=== PATIENT | male | born 1945 | race Caucasian/White ===

== ENCOUNTER 2022-07-29 15:49 | Inpatient (IN) | payer OTHER ==
[~2022-07-29] VITALS: Ht 163.8 cm; Wt 110.2 kg
--- NOTE | 2022-07-29 16:12 | NUR ---
name called no answer
--- NOTE | 2022-07-29 16:20 | NUR ---
lwbs at this time
[2022-07-29 17:56] VITALS: BP 154/80
--- NOTE | 2022-07-29 19:10 | NUR ---
LAB AT BEDSIDE
--- NOTE | 2022-07-29 19:16 | NUR ---
Pt report given to DIANA DOTSON. Transfer of care at this time.
[2022-07-29 19:41] LABS: BASOPHILS % (AUTO) 0.4 % (0.0-2.0); EOSINOPHILS % (AUTO) 0.2 % (0.0-4.0); HEMATOCRIT 41.6 % (36-52); HEMOGLOBIN 13.7 g/dL (12.0-18.0); LYMPHOCYTES # (AUTO) 1.7 K/uL (2.0-11.5); LYMPHOCYTES % (AUTO) 29.8 % (20.5-51.1); MEAN CORPUSCULAR HEMOGLOBIN 28 pg (27-31); MEAN CORPUSCULAR HGB CONC 33 g/dL (33-37); MEAN CORPUSCULAR VOLUME 84.8 fL (80-94); MONOCYTES # (AUTO) 0.4 K/uL (0.8-1.0); MONOCYTES % (AUTO) 7.4 % (1.7-9.3); NEUTROPHILS # (AUTO) 3.5 K/uL (1.8-7.7); NEUTROPHILS % (AUTO) 62.2 % (42.2-75.2); PLATELET COUNT (AUTO) 250 K/uL (140-450); WHITE BLOOD COUNT (AUTO) 5.6 K/uL (4.8-10.8)
[2022-07-29 20:04] LABS: ALBUMIN 3.6 g/dL (3.4-5.0); ANION GAP 16.9 (8-16); ASPARTATE AMINOTRANSFERASE 25 U/L (15-37); CHLORIDE 101 mmol/L (98-107); CREATININE 1.2 mg/dL (0.6-1.3); GLUCOSE 167 mg/dL (74-106); POTASSIUM 3.9 mmol/L (3.5-5.1); SODIUM SERUM 137 mmol/L (136-145); TOTAL BILIRUBIN 0.5 mg/dL (0.0-1.0); UREA NITROGEN, BLOOD 17 mg/dL (7-18)
[2022-07-29] MEDS ORDERED: ASPIRIN 325 MG TAB PO ONE (20:10)
[2022-07-29] MEDS ORDERED: FUROSEMIDE 40 MG/4 ML VIAL IVP ONE (20:10)
--- NOTE | 2022-07-29 20:22 | NUR ---
PT SISTER ANNIKA CALLED REQUESTING UPDATE
[2022-07-29 22:11] LABS: APPEARANCE,URINE CLEAR (CLEAR); BILIRUBIN,URINE NEGATIVE (NEGATIVE); BLOOD, URINE NEGATIVE (NEGATIVE); COLOR,URINE YELLOW (YELLOW); LEUKOCYTE ESTERASE ,URINE NEGATIVE (NEGATIVE); NITRITE, URINE NEGATIVE (NEGATIVE); UGLUCOSE NEGATIVE (NEGATIVE)
--- NOTE | 2022-07-30 02:40 | NUR ---
Note john in EDM - 07/30/22 at 0305 by [id number] Patient will be admitted to care of Batool DOTSON. Admited to telemetry. Will go to room 124B. Belongings list completed. Bedside report given to Batool DOTSON. Batool DOTSON verbalized understanding of report, no further questions.
--- NOTE | 2022-07-30 02:45 | NUR ---
Patient will be admitted to care of Manoj DOTSON. Admited to telemetry. Will go to room 124B. Belongings list completed. Bedside report given to Manoj DOTSON. Manoj DOTSON verbalized understanding of report, no further questions.
[2022-07-30 03:18] VITALS: BP 131/69
--- NOTE | 2022-07-30 03:45 | NUR ---
Patoient admitted to [facility] floor on 07/31/2022 at 0230 for chest pain and shortness of breath,admitting DD NSTEMI and CHF exacerbations. vital stable. AOX3, romansh speaking , normoactive bowel sounds in 4 quadrants.call light within reach, bed is low position
[2022-07-30 08:00] VITALS: BP 120/61
--- NOTE | 2022-07-30 09:09 | NUR ---
PATIENT HAS BEEN SCREENED AND CATEGORIZED MODERATE NUTRITION RISK. PATIENT WILL BE SEEN WITHIN 3-5 DAYS OF ADMISSION. 08/01/22-08/03/[address] REVIEWED BY KAILASH G[address]IA RD
--- NOTE | 2022-07-30 09:30 | NUR ---
2330: COMPUTER SYSTEM DOWN. RECEIVED REPORT FROM NIGHTSHIFT NURSE. PT A/O X 3. ABLE TO MAKE NEEDS KNOWN. DENIES PAIN AT THIS TIME. EMIRATI SPEAKING. TELE MONITORING. NO SOB OR RESPIRATORY DISTRESS. ON RA. RR EVEN & UNLABORED. L HAND #20 SL. NEEDS ALL MET AT THIS TIME. ALL SAFETY MEASURES IN PLACE.
[2022-07-30] MEDS ORDERED: ZOLPIDEM 5 MG TAB PO PRN (10:15)
[2022-07-30] MEDS ORDERED: ACETAMINOPHEN 325 MG TAB PO PRN (10:15)
[2022-07-30] MEDS ORDERED: HYDROcodone/APAP 7.5/325 MG 1 TAB PO PRN (10:15)
[2022-07-30] MEDS ORDERED: ONDANSETRON 4 MG/2 ML VIAL IM/IVP PRN (10:15)
[2022-07-30] MEDS ORDERED: guaiFENesin DM 200/20 MG-10 ML 10 ML UDC PO PRN (10:15)
[2022-07-30] MEDS: NACL 0.9% 1,000 ML IV SCH (10:15)
[2022-07-30] MEDS ORDERED: POTASSIUM CHLORIDE 10 MEQ TABER PO PRN (10:15)
[2022-07-30] MEDS ORDERED: DOCUSATE SODIUM 100 MG GELCAP PO PRN (10:15)
[2022-07-30] MEDS ORDERED: NITROGLYCERIN 0.4 MG TAB SL PRN (10:20)
[2022-07-30] MEDS ORDERED: DEXTROSE 50% 50 ML SYR IVP PRN (11:00)
[2022-07-30] MEDS: INSULIN LISPRO SLIDING SCALE 100 UNITS/ML VIAL SUBQ PRN ×3 (11:41→21:01)
[2022-07-30] MEDS: BLOOD GLUCOSE MONITORING 1 DEV DEV FS SCH ×3 (11:41→20:59)
[2022-07-30] MEDS: FUROSEMIDE 20 MG/2 ML VIAL IVP SCH ×2 (11:47→20:48)
[2022-07-30 12:00] VITALS: BP 117/65
--- NOTE | 2022-07-30 12:00 | NUR ---
CONTACTED [facility] ([place], [place] ON [address]) LISTED ON MED REC AND PHARMACIST STATES THERE IS NOT PT NAMED, HI VILLALBA WITH THE PROVIDED. WRONG [facility] LISTED. CONTACTED SISTER AND MESSAGE LEFT FOR MEDICATION CLARIFICATION. AWAITING PHONE CALL RETURN.
[2022-07-30 12:25] LABS: PROTHROMBIN TIME 10.7 secs (10.8-13.4)
[2022-07-30 12:53] LABS: CHOL/HDL RATIO 2.2 (1-4.5); FREE T4 (FREE THYROXINE) 1.1 ng/dL (0.76-1.46); MAGNESIUM 1.2 mg/dL (1.8-2.4); PHOSPHORUS 2.5 mg/dL (2.5-4.9); THYROID STIMULATING HORMONE 1.55 uIU/mL (0.34-3.74)
--- NOTE | 2022-07-30 13:10 | NUR ---
DC PLANNING SW MET WITH PATIENT AND NEPHEW AT BEDSIDE TO COMPLETE ASSESSMENT. PT IS FIJIAN SPEAKING, SW INQUIRED IF PATIENT WOULD LIKE CHANNEL OPENER OUTSOLES HOWEVER, PATIENT DECLINED. PT REQUESTED NEPHEW AT BEDSIDE TRANSLATE. PT RESIDES AT HOME WITH HIS FAMILY AT THE ADDRESS LISTED ON FILE. PT IDENTIFIED ANNIKA EDOUARD, SISTER [phone] EMERGENCY CONTACT AND MDM. PATIENT DENIES AD IN PLACE AND ACCEPTED AD OFFERED BY SW. PT REPORTS MEETING WITH PCP, DR TANI OWUSU, IN [facility] CONSISTENTLY. PT REPORTS LAST VISIT, ONE MONTH AGO.PT IS REPORTED TO BE MEDICATION COMPLIANT AND RECEIVES HIS MEDICATION FROM A PHARMACY IN [facility], WHEN NEEDED. SW INQUIRED ON RESOURCES NEEDED FOR IN STATE PCP, NEPHEW REPORTS FAMILY HAS A LIST OF PROVIDERS HOWEVER, PT IS REPORTED TO PREFER MEETING WITH [facility] PCP. PATIENT IS INDEPENDENT IN ALL ACTIVITIES AND DENIES USE OF DME. PATIENT IS REPORTED TO HAVE DIABETES THAT IS WELL MANAGED. PATIENT DENIES HX OF SNF/HH SERVICES. DC PLAN IS FOR PATIENT TO RETURN HOME WITH FAMILY PROVIDING TRANSPORTATION AND AIDING IN CARE, IF REQUIRED.
[2022-07-30 16:00] VITALS: BP 123/54
[2022-07-30] MEDS: ATORVASTATIN 20 MG TAB PO SCH (16:47)
--- NOTE | 2022-07-30 17:53 | NUR ---
P.T. NOTES P.T. EVAL COMPLETED; REFER TO EVAL FOR DETAILS.
--- NOTE | 2022-07-30 19:00 | NUR ---
PT STABLE. IN NO DISTRESS. RESTING COMFORTABLY. STILL AWAITING PHONE CALL FROM PT'S SISTER TO RECEIVE CORRECT MEDICATION LIST. ALL NEEDS MET. ALL SAFETY MEASURES IN PLACE.
--- NOTE | 2022-07-30 19:21 | NUR ---
REPORT GIVEN TO NIGHTSALFT NURSEOSCAR FOR CONTINUITY OF CARE.
--- NOTE | 2022-07-30 19:22 | NUR ---
RECEIVED PT TO MORNING SHIFT NURSE. PT IS AOX3, IVORIAN SPEAKING, AMBULATORY WITH ASSIST, ABLE TO VERBALIZE NEEDS AND ABLE TO FOLLOW COMMANDS. PT IS ON ROOM AIR AND ON CARDIAC DIET. PT HAS IV ON LEFT HAND GAUGE 20 RUNNING WITH NS AT 30. PT SKIN IS INTACT. ALL SAFETY MEASURES IMPLEMENTED. BED WHEELS ON LOCKED, BED IN LOW POSITION AND CALL LIGHT WITHIN REACH.
[2022-07-30 19:26] LABS: BARBITURATE, URINE NEGATIVE ng/ml (NEG <=200); BENZODIAZEPINE, URINE NEGATIVE ng/mL (NEG <=200); CANNABINOID, URINE NEGATIVE ng/mL (NEG <=50); COCAINE, URINE NEGATIVE ng/mL (NEG <=300); OPIATE, URINE NEGATIVE ng/mL (NEG <=2000); PHENCYCLIDINE SCREEN,URINE NEGATIVE ng/mL (NEG <=25)
[2022-07-30 20:00] VITALS: BP 149/66
[2022-07-30] MEDS: METOPROLOL 25 MG TAB PO SCH (21:05)
--- NOTE | 2022-07-30 21:05 | NUR ---
ALL SCHEDULED AND PRESCRIBED MEDICATION WAS GIVEN TO PT PER MD ORDER. PT TOLERATED IT WELL. ALL SAFETY MEASURES IMPLEMENTED. BED WHEELS ON LOCKED, BED IN LOW POSITION AND CALL LIGHT WITHIN REACH.
[2022-07-31] VITALS: BP 146/60
--- NOTE | 2022-07-31 | NUR ---
PT IS SLEEPING. CHEST RISE AND FALL SYMMETRICALLY NOTED. RESPIRATION IS EVEN AND UNLABORED SATING WITH PULSE OF 84 AND SR WITH 1 DEGREE AV BLOCK RHYTHM. ALL SAFETY MEASURES IMPLEMENTED. BED WHEELS ON LOCK, BED IN LOW POSITION AND CALL LIGHT WITHIN REACH.
--- NOTE | 2022-07-31 01:00 | NUR ---
ASSISTED PT TO RESTROOM. ALSO REMINDED THE PATIENT TO BE CARE WITH HIS IV LINE. PT NODDED AND AGREED ON IT. ALL SAFETY MEASURES IMPLEMENTED. BED WHEELS ON LOCK, BED IN LOW POSITION AND CALL LIGHT WITHIN REACH.
[2022-07-31 04:00] VITALS: BP 123/58
--- NOTE | 2022-07-31 04:00 | NUR ---
CHECKED PT, STILL SLEEPING. CHEST RISE AND FALL SYMMETRICALLY NOTED. RESPIRATION IS EVEN AND UNLABORED WITH PULSE OF 72 AND SR WITH 1 DEGREE AV BLOCK RHYTHM. ALL SAFETY MEASURES IMPLEMENTED. BED WHEELS ON LOCK, BED IN LOW POSITION AND CALL LIGHT WITHIN REACH.
[2022-07-31 05:45] LABS: BASOPHILS % (AUTO) 0.4 % (0.0-2.0); EOSINOPHILS # (AUTO) 0.1 K/uL (0-0.4); HEMATOCRIT 36.4 % (36-52); HEMOGLOBIN 12.1 g/dL (12.0-18.0); LYMPHOCYTES # (AUTO) 3.3 K/uL (2.0-11.5); LYMPHOCYTES % (AUTO) 47.9 % (20.5-51.1); MEAN CORPUSCULAR HEMOGLOBIN 28 pg (27-31); MEAN CORPUSCULAR HGB CONC 33 g/dL (33-37); MEAN CORPUSCULAR VOLUME 84.2 fL (80-94); MONOCYTES # (AUTO) 0.8 K/uL (0.8-1.0); MONOCYTES % (AUTO) 11.6 % (1.7-9.3); NEUTROPHILS # (AUTO) 2.7 K/uL (1.8-7.7); NEUTROPHILS % (AUTO) 39.1 % (42.2-75.2); PLATELET COUNT (AUTO) 232 K/uL (140-450); RED BLOOD CELL COUNT(AUTO) 4.32 MIL/uL (4.20-6.10); RED CELL DISTRIBUTION WIDTH 14.9 % (11.6-13.7); WHITE BLOOD COUNT (AUTO) 6.9 K/uL (4.8-10.8)
[2022-07-31 06:23] LABS: ANION GAP 11.9 (8-16); CARBON DIOXIDE 28.9 mmol/L (21-32); CHLORIDE 104 mmol/L (98-107); CREATININE 1.2 mg/dL (0.6-1.3); GLUCOSE 138 mg/dL (74-106); POTASSIUM 3.8 mmol/L (3.5-5.1); SODIUM SERUM 141 mmol/L (136-145); UREA NITROGEN, BLOOD 17 mg/dL (7-18)
[2022-07-31] MEDS: BLOOD GLUCOSE MONITORING 1 DEV DEV FS SCH ×4 (06:33→20:36)
--- NOTE | 2022-07-31 06:34 | NUR ---
PT BLOOD GLUCOSE IS 148, NO INSULIN COVERAGE NEEDED. ALL SAFETY MEASURES IMPLEMENTED. BED WHEELS ON LOCK, BED IN LOW POSITION AND CALL LIGHT WITHIN REACH.
--- NOTE | 2022-07-31 07:13 | NUR ---
PT IS STABLE. ENDORSED PT TO MORNING SHIFT NURSE FOR CONTINUITY OF CARE.
[2022-07-31 08:00] VITALS: BP 134/57
--- NOTE | 2022-07-31 08:00 | NUR ---
RECEIVED REPORT FROM NIGHTSHIFT NURSEOSCAR. PT A/O X3. ESTONIAN SPEAKING ONLY. NO SOB OR RESPIRATORY DISTRESS. ON RA. NS @ 30 ML/HR ON L HAND #20. NEEDS ALL MET AT THIS TIME. ALL SAFETY MEASURES IN PLACE.
[2022-07-31] MEDS: PANTOPRAZOLE 40 MG TABEC PO SCH (09:23)
[2022-07-31] MEDS: lisinopriL 5 MG TAB PO SCH (09:24)
[2022-07-31] MEDS: METOPROLOL 25 MG TAB PO SCH ×2 (09:25→20:20)
[2022-07-31] MEDS: ECOTRIN 81 MG TABEC PO SCH (09:25)
[2022-07-31] MEDS: FUROSEMIDE 20 MG/2 ML VIAL IVP SCH ×2 (09:25→20:19)
[2022-07-31] MEDS: MAGNESIUM OXIDE 400 MG TAB PO SCH (09:33)
--- NOTE | 2022-07-31 10:15 | NUR ---
PT COMPLETED 100% OF BREAKFAST. PT AMBULATED TO AND FROM RESTROOM WITH STEADY GAIT. DENIES PAIN. NO SOB NOTED. ON RA. NEEDS ALL MET AT THIS TIME. ALL SAFETY MEASURES IN PLACE.
[2022-07-31] MEDS: NACL 0.9% 1,000 ML IV SCH (10:16)
[2022-07-31] MEDS: INSULIN LISPRO SLIDING SCALE 100 UNITS/ML VIAL SUBQ PRN ×2 (11:58→20:39)
[2022-07-31 12:00] VITALS: BP 130/61
--- NOTE | 2022-07-31 13:00 | NUR ---
SPOKE WITH PT'S NEPHEW AT BEDSIDE (DANK) AND HE STATES PT DOES NOT HAVE A PHARMACY AND GETS HIS MEDICATION FROM [facility]. PLAN OF CARE DISCUSSED WITH VERBALIZATION OF UNDERSTANDING.
[2022-07-31 16:00] VITALS: BP 127/60
[2022-07-31] MEDS: ATORVASTATIN 20 MG TAB PO SCH (16:27)
--- NOTE | 2022-07-31 17:00 | NUR ---
PT AMBULATING BACK AND FORTH HALLWAY WITH MASK ON. OBSERVED WITH STEADY GAIT. PT AMBULATED BACK TO HIS BED. NO SOB NOTED. NEEDS ALL MET. ALL SAFETY MEASURES IN PLACE.
[2022-07-31 19:03] LABS: T4 (THYROXINE) 0.4 ug/dL (4.5 - 12.0)
--- NOTE | 2022-07-31 19:11 | NUR ---
REPORT GIVEN TO NIGHTSWYFT NURSEOSCAR FOR CONTINUITY OF CARE.
--- NOTE | 2022-07-31 19:12 | NUR ---
RECEIVED PT TO MORNING SHIFT NURSE. PT IS LYING ON THE BED WATCHING TV, AOX3, BHUTANESE SPEAKING, AMBULATORY WITH ASSIST, ABLE TO VERBALIZE NEEDS AND ABLE TO FOLLOW COMMANDS. PT IS ON ROOM AIR AND ON CARDIAC DIET. PT HAS IV ON LEFT HAND GAUGE 20 RUNNING WITH NS AT 30. PT SKIN IS INTACT. ALL SAFETY MEASURES IMPLEMENTED. BED WHEELS ON LOCKED, BED IN LOW POSITION AND CALL LIGHT WITHIN REACH.
[2022-07-31 20:00] VITALS: BP 121/70
--- NOTE | 2022-07-31 22:00 | NUR ---
PT WAS GIVEN WATER PER PT REQUEST. ALL SAFETY MEASURES IMPLEMENTED. BED WHEELS ON LOCKED, BED IN LOW POSITION AND CALL LIGHT WITHIN REACH.
[2022-08-01] VITALS: BP 122/70
--- NOTE | 2022-08-01 | NUR ---
PT IS SLEEPING. CHEST RISE AND FALL SYMMETRICALLY NOTED. RESPIRATION IS EVEN AND UNLABORED. NO S/S OF RESPIRATORY DISTRESS. ALL SAFETY MEASURES IMPLEMENTED. BED WHEELS ON LOCKED, BED IN LOW POSITION AND CALL LIGHT WITHIN REACH.
--- NOTE | 2022-08-01 03:00 | NUR ---
CHECKED THE PT, STILL SLEEPING. CHEST RISE AND FALL SYMMETRICALLY NOTED. RESPIRATION IS EVEN AND UNLABORED. NO S/S OF RESPIRATORY DISTRESS. ALL SAFETY MEASURES IMPLEMENTED. BED WHEELS ON LOCKED, BED IN LOW POSITION AND CALL LIGHT WITHIN REACH.
[2022-08-01 04:00] VITALS: BP 106/60
[2022-08-01 05:59] LABS: BASOPHILS % (AUTO) 0.5 % (0.0-2.0); EOSINOPHILS # (AUTO) 0.1 K/uL (0-0.4); EOSINOPHILS % (AUTO) 1.6 % (0.0-4.0); HEMOGLOBIN 12.1 g/dL (12.0-18.0); LYMPHOCYTES # (AUTO) 2.7 K/uL (2.0-11.5); LYMPHOCYTES % (AUTO) 50.4 % (20.5-51.1); MEAN CORPUSCULAR HEMOGLOBIN 28 pg (27-31); MEAN CORPUSCULAR HGB CONC 34 g/dL (33-37); MEAN CORPUSCULAR VOLUME 83.7 fL (80-94); MONOCYTES # (AUTO) 0.5 K/uL (0.8-1.0); MONOCYTES % (AUTO) 9.2 % (1.7-9.3); NEUTROPHILS # (AUTO) 2.1 K/uL (1.8-7.7); NEUTROPHILS % (AUTO) 38.3 % (42.2-75.2); PLATELET COUNT (AUTO) 236 K/uL (140-450); RED CELL DISTRIBUTION WIDTH 14.4 % (11.6-13.7); WHITE BLOOD COUNT (AUTO) 5.4 K/uL (4.8-10.8)
[2022-08-01 06:25] LABS: ANION GAP 11.9 (8-16); CARBON DIOXIDE 28.4 mmol/L (21-32); CHLORIDE 103 mmol/L (98-107); GLUCOSE 149 mg/dL (74-106); POTASSIUM 3.3 mmol/L (3.5-5.1); SODIUM SERUM 140 mmol/L (136-145); UREA NITROGEN, BLOOD 16 mg/dL (7-18)
--- NOTE | 2022-08-01 06:36 | NUR ---
PT POTASSIUM IS 3.3, K-DUR 40MEQ WAS GIVEN TO PT PER MD ORDER. ALL SAFETY MEASURES IMPLEMENTED. BED WHEELS ON LOCKED, BED IN LOW POSITION AND CALL LIGHT WITHIN REACH.
[2022-08-01] MEDS: BLOOD GLUCOSE MONITORING 1 DEV DEV FS SCH ×4 (06:37→20:52)
--- NOTE | 2022-08-01 06:37 | NUR ---
PT BLOOD GLUCOSE IS 149. NO INSULIN COVERAGE NEEDED.
--- NOTE | 2022-08-01 08:05 | NUR ---
PT IS STABLE. ENDORSE PT TO MORNING SHIFT NURSE FOR CONTINUITY OF CARE.
--- NOTE | 2022-08-01 08:06 | NUR ---
RECEIVED PT FROM GAS PIPE LAYER NURSE. PT IS LYING ON THE BED, YORUBA SPEAKING, AOX4, AMBULATORY, ABLE TO VERBALIZE NEEDS. PT IS ON ROOM AIR. PT HAS IV ON LEFT HAND 20G. PT SKIN IS INTACT. ALL SAFETY MEASURES IMPLEMENTED. BED IN LOW POSITION AND WHEELS LOCKED, CALL LIGHT WITHIN REACH.
[2022-08-01] MEDS: METOPROLOL 25 MG TAB PO SCH ×2 (09:05→20:49)
[2022-08-01] MEDS: ECOTRIN 81 MG TABEC PO SCH (09:06)
[2022-08-01] MEDS: lisinopriL 5 MG TAB PO SCH (09:06)
[2022-08-01] MEDS: PANTOPRAZOLE 40 MG TABEC PO SCH (09:06)
[2022-08-01] MEDS: MAGNESIUM OXIDE 400 MG TAB PO SCH (09:08)
--- NOTE | 2022-08-01 09:15 | NUR ---
ALL SCHEDULED MEDS GIVEN. PT WAS EDUCATED ON MEDICATIONS TAKEN.
[2022-08-01] MEDS: FUROSEMIDE 20 MG/2 ML VIAL IVP SCH ×2 (09:47→20:50)
[2022-08-01 10:00] VITALS: BP 127/46
[2022-08-01] MEDS: NACL 0.9% 1,000 ML IV SCH (10:34)
[2022-08-01 12:00] VITALS: BP 130/61
[2022-08-01] MEDS: INSULIN LISPRO SLIDING SCALE 100 UNITS/ML VIAL SUBQ PRN ×2 (12:15→20:52)
--- NOTE | 2022-08-01 12:20 | NUR ---
PT BLOOD GLUCOSE 239. ADMINISTERED 4 UNITS OF INSULIN PER SLIDING SCALE.
[2022-08-01 16:00] VITALS: BP 129/56
--- NOTE | 2022-08-01 17:26 | NUR ---
PT BLOOD GLUCOSE IS 116, NO INSULIN COVERAGE NEEDED.
[2022-08-01] MEDS ORDERED: CRUSHER, PILL MC ONE (17:49)
[2022-08-01] MEDS: ATORVASTATIN 20 MG TAB PO SCH (17:52)
--- NOTE | 2022-08-01 19:06 | NUR ---
ENDORSED PT TO IMMIGRATION COORDINATOR NURSE FOR CONTINUITY OF CARE. PT IS STABLE.
--- NOTE | 2022-08-01 19:10 | NUR ---
RECEIVED BEDSIDE REPORT FROM DAY SHIFT RN FOR CONTINUITY OF CARE. PT IS AWAKE RESTING IN BED. PT IS AAOX4 JAPANESE SPEAKER. PT IS RA. PT CONTINENT TO BOWEL AND BLADDER. PT HAS LEFT HAND 20 GAUGE RUNNING NS 30 CC/HR. PLAN OF CARE DISCUSSED. WILL CONTINUE TO MONITOR THE PT.
[2022-08-01 20:00] VITALS: BP 116/52
--- NOTE | 2022-08-01 21:06 | NUR ---
SCHEDULE MEDICATIONS GIVEN. NO ADVERSE REACTION NOTED. WILL CONTINUE TO MONITOR THE PT.
--- NOTE | 2022-08-01 23:15 | NUR ---
PT OBSERVED. PT IS SLEEPING COMFORTABLY IN BED. PT NOT IN ANY RESPIRATORY DISTRESS. CALL LIGHT WITHIN REACH. ALL SAFETY MEASURES TAKEN. WILL CONTINUE TO MONITOR THE PT.
[2022-08-02] VITALS: BP 115/47
[2022-08-02 04:00] VITALS: BP 110/51
[2022-08-02 05:45] LABS: BASOPHILS % (AUTO) 0.7 % (0.0-2.0); EOSINOPHILS # (AUTO) 0.1 K/uL (0-0.4); EOSINOPHILS % (AUTO) 1.6 % (0.0-4.0); HEMATOCRIT 36.7 % (36-52); HEMOGLOBIN 12.1 g/dL (12.0-18.0); LYMPHOCYTES # (AUTO) 3.1 K/uL (2.0-11.5); LYMPHOCYTES % (AUTO) 49.3 % (20.5-51.1); MEAN CORPUSCULAR HEMOGLOBIN 28 pg (27-31); MEAN CORPUSCULAR HGB CONC 33 g/dL (33-37); MEAN CORPUSCULAR VOLUME 84.1 fL (80-94); MONOCYTES # (AUTO) 0.6 K/uL (0.8-1.0); MONOCYTES % (AUTO) 9.1 % (1.7-9.3); NEUTROPHILS # (AUTO) 2.5 K/uL (1.8-7.7); NEUTROPHILS % (AUTO) 39.3 % (42.2-75.2); PLATELET COUNT (AUTO) 255 K/uL (140-450); RED BLOOD CELL COUNT(AUTO) 4.36 MIL/uL (4.20-6.10); RED CELL DISTRIBUTION WIDTH 14.5 % (11.6-13.7); WHITE BLOOD COUNT (AUTO) 6.4 K/uL (4.8-10.8)
[2022-08-02 05:58] LABS: CARBON DIOXIDE 28.5 mmol/L (21-32); CHLORIDE 101 mmol/L (98-107); GLUCOSE 160 mg/dL (74-106); POTASSIUM 3.5 mmol/L (3.5-5.1); SODIUM SERUM 136 mmol/L (136-145); UREA NITROGEN, BLOOD 15 mg/dL (7-18)
[2022-08-02] MEDS: INSULIN LISPRO SLIDING SCALE 100 UNITS/ML VIAL SUBQ PRN (06:30)
[2022-08-02] MEDS: BLOOD GLUCOSE MONITORING 1 DEV DEV FS SCH (06:31)
--- NOTE | 2022-08-02 06:35 | NUR ---
PT BLOOD GLUCOSE OF 160 AND WAS COVERED. NO COMPLAINS FROM THE PT. WILL CONTINUE TO MONITOR.
--- NOTE | 2022-08-02 07:24 | NUR ---
ENDORSED PT TO DAY SHIFT RN FOR CONTINUITY OF CARE. PT IS STABLE.
--- NOTE | 2022-08-02 07:25 | NUR ---
RECEIVED PATIENT FROM COMMODITY MERCHANT NURSE FOR CONTINUITY OF CARE. PT IS AOX4, TAMAZIGHT SPEAKING. ON ROOM AIR AND NO DISTRESS NOTED. SKIN IS WARM, DRY, AND INTACT. IVF INFUSING ORDERED. DENIES PAIN AT THE MOMENT. PLAN OF CARE DISCUSSED. SAFETY PRECAUTIONS IN PLACE. CALL LIGHT WITHIN REACH. WILL CONTINUE TO MONITOR.
[2022-08-02] MEDS ORDERED: FURO-570 PO (07:28)
[2022-08-02] MEDS ORDERED: ASPI-1856 PO (07:28)
[2022-08-02] MEDS ORDERED: LISI5TAB24 PO (07:28)
[2022-08-02] MEDS ORDERED: METO25TA PO (07:28)
[2022-08-02] MEDS ORDERED: ATOR20TA40 PO (07:28)
[2022-08-02] MEDS ORDERED: AZIT500T8 PO (07:30)
[2022-08-02 08:00] VITALS: BP 110/36
[2022-08-02] MEDS: METOPROLOL 25 MG TAB PO SCH (09:00)
[2022-08-02] MEDS: lisinopriL 5 MG TAB PO SCH (09:00)
[2022-08-02] MEDS: FUROSEMIDE 20 MG/2 ML VIAL IVP SCH (09:21)
[2022-08-02] MEDS: ECOTRIN 81 MG TABEC PO SCH (09:23)
[2022-08-02] MEDS: PANTOPRAZOLE 40 MG TABEC PO SCH (09:24)
[2022-08-02] MEDS: MAGNESIUM OXIDE 400 MG TAB PO SCH (09:24)
--- NOTE | 2022-08-02 09:45 | NUR ---
ALL SCHEDULED MEDS GIVEN. PT IS STABLE. NO DISTRESS NOTED. WILL CONTINUE TO MONITOR.
[2022-08-02 09:51] VITALS: BP 110/36
--- NOTE | 2022-08-02 10:00 | NUR ---
ENDORSED DISCHARGE FORMS TO PATIENT. PT VERBALIZE UNDERSTANDING AND SIGNED DISCHARGE FORMS.
[2022-08-02] MEDS: NACL 0.9% 1,000 ML IV SCH (10:01)
--- NOTE | 2022-08-02 10:55 | NUR ---
PATIENT DISCHARGED OFF THE UNIT. IV ACCESS AND ID BAND REMOVED. PT WAS ESCORTED TO THE FRONT LOBBY BY WHEELCHAIR. PT WAS STABLE PRIOR TO DISCHARGE.
== END 2022-08-02 11:03 | disposition home or self-care (01) | DRG 292 ==
LOC: MED 15:49 → MTU 21:10
PROVIDERS: ADMIT Family Medicine; ATTEND Family Medicine
DX: I50.43 Acute on chronic combined systolic (congestive) and diastolic (congestive) heart failure (principal); I24.8 Other forms of acute ischemic heart disease; J98.11 Atelectasis; Z68.41 Body mass index [BMI] 40.0-44.9, adult; E86.0 Dehydration; E83.51 Hypocalcemia; R77.8 Other specified abnormalities of plasma proteins; Z20.822 Contact with and (suspected) exposure to COVID-19; E78.00 Pure hypercholesterolemia, unspecified; E11.9 Type 2 diabetes mellitus without complications; E78.1 Pure hyperglyceridemia; D72.818 Other decreased white blood cell count; D72.810 Lymphocytopenia; I51.7 Cardiomegaly; Z79.899 Other long term (current) drug therapy
CPT/HCPCS: 36415; 71045; 80048; 80053; 80305; 81003; 82150; 82948; 83036; 83690; 83735; 83880; 84100; 84436; 84439; 84443; 84479; 84484; 85025; 85610; 85730; 87081; 93005; 93925; 93970; 96374; 97163-GP; 99291; J0696; J1644; J1815; J1940; J7060; Q0092

== ENCOUNTER 2022-08-15 14:48 | Emergency (ER) | payer OTHER ==
[~2022-08-15] VITALS: Ht 165.1 cm; Wt 111.6 kg
[~2022-08-15 14:48] MED LIST: ASPI-1856 PO; ATOR20TA40 PO; AZIT500T8 PO; FURO-570 PO; LISI5TAB24 PO; METO25TA PO
[2022-08-15 15:32] VITALS: BP 170/79
[2022-08-15] MEDS ORDERED: LANC-983 TP (16:34)
--- NOTE | 2022-08-15 17:54 | NUR ---
ATTEMPTED TO D/C PATIENT, NOT FOUND IN LOBBY/OUTSIDE. RX OF LACENTS SENT TO PTS PHARMACY.
== END 2022-08-15 17:54 | disposition home or self-care (01) ==
LOC: MED 14:48
DX: I10 Essential (primary) hypertension (principal); Z76.0 Encounter for issue of repeat prescription; K21.9 Gastro-esophageal reflux disease without esophagitis; J44.9 Chronic obstructive pulmonary disease, unspecified; Z79.899 Other long term (current) drug therapy
CPT/HCPCS: 99281